=== PATIENT | female | born 1975 | race Caucasian/White ===

== ENCOUNTER 2024-05-22 18:25 | Emergency (ER) | payer MEDICAID, SELFPAY ==
[2024-05-22 19:20] VITALS: BP 135/75; PULSE 108; RESP 18; TEMP 36.4; O2SAT 100
[2024-05-22 19:23] VITALS: BP 125/94; PULSE 95; RESP 19; TEMP 36.9; O2SAT 100
--- NOTE | 2024-05-22 19:36 | XR_ITS ---
Examination: PA chest single view Technique portable AP chest single view. Examination time: May 22, 2024 2018 hours INDICATIONS: Chest pain radiating to left arm today. FINDINGS: Normal heart size. Lungs are clear. The osseous structures are intact IMPRESSION: No active disease
--- NOTE | 2024-05-22 19:37 | PD.EDRME ---
Rapid Medical Screening Exam [facility] Arrival date/time: 05/22/24 18:25 48F with history of MS (on immunosuppressant) and fibromyalgia presents to ED with 2 hours of L-sided CP, jaw pain, and L arm pain. Chief Complaint: Neuro Symptoms/Deficit Vital signs: Vital Signs Temperature 97.5 F 05/22/24 19:20 Pulse Rate 108 H 05/22/24 19:20 Respiratory Rate 18 05/22/24 19:20 Blood Pressure 135/75 H 05/22/24 19:20 Pulse Oximetry (%) 100 05/22/24 19:20 Oxygen Delivery Method Room Air 05/22/24 19:20
[2024-05-22 21:05] LABS: Basophils % (Auto) 0 % (0-2.5); Eosinophils # (Auto) 0.1 Thou/mm3 (0.0-0.5); Eosinophils % (Auto) 1 % (0-10); Hematocrit 40.5 % (36.0-46.0); Hemoglobin 13.7 g/dL (12.0-16.0); Immature Granulocytes % (Auto) 0 % (0-0); Immature Granulocytes Auto 0.02 Thou/mm3 (0.00-0.00); Lymphocytes # (Auto) 1.3 Thou/mm3 (1.0-4.8); Lymphocytes % (Auto) 14 % (10-50); Mean Corpuscular HGB Conc 33.8 g/dl (31.0-37.0); Mean Corpuscular Hemoglobin 27.7 pg (25.0-35.0); Mean Corpuscular Volume 82 fL (80-100); Monocytes # (Auto) 0.8 Thou/mm3 (0.0-0.8); Monocytes % (Auto) 9 % (0-12); Neutrophils % (Auto) 75 % (37-80); Nucleated Red Blood Cell % 0 /100 WBC (0); Platelet Count 385 Thou/mm3 (140-440); RDW Standard Deviation 37.5 fL (36.4-46.3); Red Blood Count 4.94 Miln/mm3 (4.00-5.20); White Blood Count 9.2 Thou/mm3 (3.6-11.0)
[2024-05-22 21:18] LABS: HCG Qualitative,Urine Negative
[2024-05-22 21:22] LABS: Alanine Aminotransferase 22 U/L (10-49); Albumin, Serum 4.6 gm/dL (3.5-5.0); Albumin/Globulin Ratio 1.4 (1.2-2.2); Alkaline Phosphatase 93 U/L (46-116); Anion Gap 9 (7-16); Aspartate Amino Transferase 18 U/L (0-34); BUN/Creatinine Ratio 14 Ratio (12-20); Bilirubin,Total 0.4 mg/dL (0.3-1.2); Blood Urea Nitrogen 11 mg/dL (9-23); Calcium 9.6 mg/dL (8.3-10.6); Calcium (Corrected) 9.6 mg/dL (8.5-10.1); Carbon Dioxide 24.6 mMol/L (20.0-31.0); Chloride 106 mMol/L (98-107); Creatinine (Component) 0.8 mg/dL (0.6-1.3); Globulin 3.3 gm/dL (2.3-3.5); Glucose 91 mg/dL (74-106); Osmolality,Calculated 278 (275-295); Potassium 3.7 mMol/L (3.4-5.1); Sodium 140 mMol/L (136-145); Total Protein 7.9 gm/dL (5.7-8.2); Troponin I < 0.002 ng/mL (0.0-0.045); eGFR > 60 See Note
--- NOTE | 2024-05-22 21:38 | EDNOTE_ITS ---
Neuro Symptoms Deficit-RME/HPI General Chief Complaint: Neuro Symptoms/Deficit Stated Complaint: left sided shoot jaw pain x 1day Time Seen by Provider: 05/22/24 21:37 Arrival date/time: 05/22/24 18:25 RME / HPI RME / HPI Narrative: 48F with history of MS (on immunosuppressant) and fibromyalgia presents to ED with left-sided chest pain radiating to the jaw, left arm, has been ongoing since yesterday getting worse for the last 2 hours. Patient denies any fever denies any other complaints no medications taken prior to arrival. Related Data Previous Rx's ?Medication ?Instructions ?Recorded sumatriptan succinate 25 mg tablet See Rx Instructions PO .COMPLEX 04/27/22 (Imitrex) #14 tabs acetaminophen 500 mg tablet 1,000 mg (2 x 500 mg) PO T ID #30 10/14/22 tabs ibuprofen 600 mg tablet 600 mg PO Q8H PRN pain #30 t abs 10/14/22 Allergies Allergy/AdvReac Type Severity Reaction Status Date / Time adhesive tape Allergy Severe Rash Verified 05/22/24 18:27 azithromycin Allergy Severe Hives Verified 05/22/24 18:27 Penicillins Allergy Severe RASH Verified 05/22/24 18:27 ceftriaxone (From Rocephin) Allergy Verified 05/22/24 18:27 Review of Systems Review of Systems Narrative Review of Systems: Review of system reviewed and within normal limits except mentioned in HPI ED Exam Narrative Physical exam: VITAL SIGNS: Reviewed. GENERAL APPEARANCE: Alert and interactive, follows commands, no acute distress, HEAD AND FACE: Non-traumatic. ENT: PERRL, pink conjunctivitis, eyelid no trauma, Mucous membrane moist. NECK: Supple, nontender, no nuchal rigidity. CHEST: No tenderness, no crepitus, no paradoxical movement, no retractions. LUNGS: Clear, well ventilated, symmetric, no rales, no wheezing, no ronchi, no stridor, good breath sounds bilaterally. HEART: Regular rate, regular rhythm, no murmur, no gallops. ABDOMEN: Soft, positive bowel sounds, nondistended, no guarding, nontender, no rebound, no masses, RECTAL: Deferred. GENITAL: Deferred. NEUROLOGICAL: Gross motor function intact sensory function intact, Appropriate for age. MUSCULOSKELETAL: low back nontender, full range of motion. EXTREMITIES: Nontender, full range of motion. SKIN: Color pink, dry, no rash, no lacerations, no abrasions, no contusions. LYMPHATICS: Deferred. Course Quality Measures none Orders Category Date Time Status EKG (ED ONLY) *Do not use* NOW Care 05/22/24 19:16 Completed EKG (ED Only) Stat Exams 05/22/24 19:16 Ordered XR chest 1V portable Stat Exams 05/22/24 19:36 Completed CBC Stat Lab 05/22/24 20:15 Completed Comprehensive Metabolic Panel Stat Lab 05/22/24 20:15 Completed Drug Screen,Urine Stat Lab 05/22/24 20:34 Received HCG Qualitative,Urine Stat Lab 05/22/24 20:34 Completed Troponin I Stat Lab 05/22/24 20:15 Completed Ketorolac Inj [Toradol Inj] Med 05/22/24 21:46 Discontinued 30 mg IM X1 ONE Vital Signs Vital signs: Vital Signs Temperature 97.5 F 05/22/24 19:20 Pulse Rate 108 H 05/22/24 19:20 Respiratory Rate 18 05/22/24 19:20 Blood Pressure 135/75 H 05/22/24 19:20 Pulse Oximetry (%) 100 05/22/24 19:20 Oxygen Delivery Method Room Air 05/22/24 19:20 Neuro Symptoms / Deficit MDM Narrative MDM Narrative:: 48F with history of MS (on immunosuppressant) and fibromyalgia presents to ED with left-sided chest pain radiating to the jaw, left arm, has been ongoing since yesterday getting worse for the last 2 hours. Patient denies any fever denies any other complaints no medications taken prior to arrival. Laboratory workup all came back normal troponin is normal. EKG also came back with no ST segment elevation depression noted. Results discussed with the patient. Chest x-ray also came back normal. Patient is probably having flareup of MS and fibromyalgia. Patient was advised to follow-up. Her neurologist in the morning. Was given Toradol IM Patient appears nontoxic and hemodynamically stable. Patient discharged home and instructed to follow-up with primary care provider in 24 to 48 hours. Instructed to return to the emergency department immediately if worsening of symptoms Patient data External records reviewed:: None Clinical information provided by:: patient Social determinants that could affect healthcare access:: none Patient has the following chronic illnesses:: Fibromyalgia, MS How is presenting disease/condition affected by chronic disease/condition?: exacerbated by Evaluation data The following diagnostics were reviewed and interpreted by me:: lab results, radiology exam(s) and EKG tracing(s) Lab and/or radiology exams considered but not ordered:: None Interpretation Summary: See results in [facility] Medications / Prescriptions Medications or Prescriptions considered but not ordered:: None Medication administrations:: Medication Administration History Discontinued Medications Ketorolac Tromethamine (Ketorolac Inj 60 Mg/2 Ml Vial) 30 mg IM X1 ONE Stop: 05/22/24 21:47 Toradol IM Consultations Consultation(s) initiated? (list below): No Diagnosis Neuro Differential Diagnosis: other (MS flareup, fibromyalgia, chest pain, jaw pain) Most likely diagnosis given after review of the tests above:: Jaw pain, chest pain Admission Indicated Admission indicated?: not indicated Explain why admission is indicated or not indicated:: Stable Admission Request Was there a request for admission?: No Disposition Plan Disposition Plan: Discharge Discharge Attestation Discharge Attestation: The patient was given an opportunity to ask questions and understood the discharge instructions. Discharge instructions specifically effects, indications for sooner follow up or return to the emergency department, and the expected course of current diagnosis. Patient condition: Stable Discharge Plan Plan Patient Disposition: HOME (Self Care) Disposition Comment: stable Prescriptions/Referrals Prescriptions/Med Rec: No Action sumatriptan succinate [Imitrex] 25 mg tablet See Rx Instructions .ROUTE .COMPLEX Qty: 14 0RF Rx Instructions: take 1 tab at onset of headache; if no relief may repeat 1 tab after at least 2 hrs; max = 4 tabs/24 hr acetaminophen 500 mg tablet 1,000 mg PO TID Qty: 30 0RF ibuprofen 600 mg tablet 600 mg PO Q8H PRN (Reason: pain) Qty: 30 0RF Referrals: Meek Case PA-C [Primary Care Provider] - In 1 week Problem List Clinical Impression: Jaw pain, Chest pain, Fibromyalgia, History of multiple sclerosis Patient/Caregiver Discharge Instructions Discharge Activity: activity as tolerated Education Materials: Understanding the Pain Response Additional Instructions: Thank you for the opportunity for serving you today. You are stable for discharged . You are advised to: Follow-up with your neurologist in the morning Return to ED for worsening of symptoms Increase oral fluids Take medication as prescribed Print Language: Arabic Stand Alone Forms: Janeth Award Info., Patient Portal Info Letter PA/LEATHER BELT SHAPER Supervising Physician PA/LEATHER BELT SHAPER Supervising Physician: MD Jeff
[2024-05-22 21:39] VITALS: BP 128/80; PULSE 77; RESP 18; TEMP 36.7; O2SAT 98
[2024-05-22] MEDS: KETOROLAC INJ 60 MG/2 ML VIAL 30 MG IM (22:01)
[2024-05-22 23:08] LABS: Amphetamine/Methamp Scrn,U Negative (Negative); Barbiturate Screen,Urine Negative (Negative); Benzodiazepines Screen,Urine Negative (Negative); Benzoylecgonine Screen, Ur Negative (Negative); Fentanyl Screen,Urine Negative (Negative); Opiate Screen,Urine Negative (Negative); THC Screen,Urine Positive (Negative)
== END 2024-05-22 22:01 | disposition home or self-care (01) ==
PROVIDERS: Physician Assistant; Emergency Provider Emergency Medicine; PCP Family Medicine
DX: R68.84 Jaw pain (principal)
CPT/HCPCS: 36415; 71045; 80053; 80307; 81025; 84484; 85025; 93005; 96372; 99283; J1885

== ENCOUNTER → 2024-06-13 | Outpatient (CLI) | payer MEDICAID, SELFPAY ==
[2024-06-12 16:50] LABS: HCG Qualitative,Urine Negative
--- NOTE | 2024-06-13 | XR_ITS ---
Examination: MRI cervical spine, without intravenous contrast. MRI cervical spine , with intravenous contrast. Exam date and time: June 13, 2024 0815 hours INDICATIONS: Diagnosis demyelinating disease, numbness in the extremities, altered mental status headache dizziness beginning 2021 Technique: Multiple axial, sagittal and coronal images of the cervical spine have been obtained with the Siemens high-resolution 1.5 [place] MRI scanner. Images obtained included T2 weighted fat suppressed sagittal sections, TR 3500, TE 46, T2 weighted coronal fat suppressed images, TR 3050, TE 84, T2-weighted transverse fat suppressed images, TR 30-60, TE 63, proton density transverse images, TR 4720, TE 46, and T1 weighted coronal images, TR 560, TE 13. Axial, sagittal and coronal images are obtained post intravenous injection 16 cc gadolinium. Findings: Satisfactory alignment cervical vertebral bodies No cervical fracture Multiple areas of increased signal throughout the cervical cord on the precontrast images without definite enhancement on the postcontrast images No focal soft tissue disc protrusion IMPRESSION: Multiple foci of increased signal on the precontrast images in the cervical cord, demyelinating disease pattern
--- NOTE | 2024-06-13 08:00 | XR_ITS ---
Examination: MRI of brain without intravenous contrast. MRI brain with intravenous contrast. Date and time of exam:June 13, 2024 0835 hours Comparison July 01, 2023 INDICATIONS: Headaches dizziness altered mental status numbness in the extremities left-sided neck pain several years Technique: Multiple axial and sagittal images of the brain to been obtained. Siemens high-resolution 1.52 [employer] short bore scanner utilized. Sagittal sections, T1 weighted images, TR 500, TE 14, are performed. Axial sections proton-density and T2-weighted images have been obtained. Inversion recovery axial images, TR 9260, TE 111, TR 2500. Diffusion weighted images, axial sections, TR 4800, TE 128, B value 1000. Axial sections, ADC map, TR 4800, TE 128. Axial and coronal images were also obtained post 16 cc gadolinium administered intravenously. Findings:: Enlargement of the sella turcica is not present. The optic chiasm and infundibular stalk are not remarkable. There is no localized enlargement of the medulla or peggy. Fourth ventricle and cerebellar tonsils appear normal in position. No subacute area of hemorrhage density is seen. Fourth ventricle is midline. Mass in the cerebellopontine angle region is not evident. 7th and 8th nerve complexes exhibit symmetry Globes are symmetrical Orbital musculature including medial lateral rectus muscles do not exhibit abnormality Increased white matter signal is again noted, extensive punctate foci increased signal throughout the white matter Effacement of the cortical sulcal markings is not identified. Mass effect upon the ventricular system is not identified. Diffusion-weighted images demonstrate no focus of restricted diffusion Contrast images demonstrate no abnormal enhancement Impression: No significant change in extensive punctate foci increased signal throughout the white matter, demyelinating disease
== END | disposition home or self-care (01) ==
PROVIDERS: PCP Family Medicine; Referring Provider Psychiatry & Neurology Neurology; Visit Provider Psychiatry & Neurology Neurology
DX: R90.82 White matter disease, unspecified (principal); Z32.00 Encounter for pregnancy test, result unknown
CPT/HCPCS: 70553; 72156; 81025; A9579

== ENCOUNTER 2024-09-15 22:39 | Emergency (ER) | payer MEDICAID, SELFPAY ==
[2024-09-15 22:41] VITALS: PULSE 118; RESP 18; O2SAT 98; BMI 34.0
--- NOTE | 2024-09-15 22:46 | XR_ITS ---
Examination: CT brain head without contrast. 2-D sagittal coronal reconstructions Date and time of exam:September 16, 2024 0021 hours INDICATIONS: Severe headaches with photophobia today COMPARISON: April 24, 2022 CTDI: vol (mGy):50.1 DLP: (mGycm):958 Technique: Multiple CT axial sections of the brain have been obtained, 5 mm slice thickness. Contrast has not been administered. 2-D sagittal, coronal reconstructions have been obtained Low dose protocols were performed. One or more of the following dose reduction techniques were used; automated exposure control, adjustment of the mA and/or KV according to patient size, use of iterative reconstruction technique. Findings: No significant ventricular enlargement. Intra-axial or extra-axial hemorrhage density is not seen. No mass effect or midline shift Basal cisterns are not remarkable. Fourth ventricle is midline. Cranial vault intact. Impression: Negative for acute hemorrhage, mass effect or midline shift
--- NOTE | 2024-09-15 22:46 | PD.EDHA ---
ED Headache RME/HPI General Chief Complaint: Headache Stated Complaint: HEADACHE Time Seen by Provider: 09/15/24 23:11 Arrival date/time: 09/15/24 22:39 RME / HPI RME / HPI Narrative: This section includes all my notes and documentations, including HPI, PE, and ED course. Efrain Winter MD HPI: 48yo female with a history of MS, fibromyalgia, anxiety BIBA from home presents to the ED for a headache. The headache started about 12 hours ago and has gotten progressively worse throughout the day. Patient states she has been unable to get out of bed. She reports associated nausea and photophobia. EMS administered Zofran en route. Patient denies any vomiting, fever, chills or any other associated symptoms. Denies any possibility of being . She does have an appointment with her neurologist on Monday, today after tomorrow. No other complaints reported. ROS: All negative except as documented in HPI. Physical Exam: General: Alert and oriented. Appears to be in severe pain. Eyes: Conjunctivae and lids clear. PERRL. EOMI. ENT: No nasal congestion. Neck: Supple. Heart: RRR. Lungs: No respiratory distress. Good air movement. No rhonchi, wheezing, rales. Abdomen: Soft and nontender. Back: No CVA tenderness. Skin: Warm and dry. Neuro: Alert and oriented X 3. Cranial nerves II to XII grossly normal. No peripheral motor deficits. I reviewed all diagnostic test results. My review of the CT report is unremarkable. Blood tests are unremarkable. UA normal. At this point, diagnoses include headache. Treatment here included Benadryl, NS, Toradol, Reglan, Morphine, Pepcid, and Protonix. Significant improvement noted. Based on my best medical judgment, made decision no further evaluation or treatment indicated at this time. Patient understands and agrees to the discharge instructions customized and printed, see below. Discharge Instructions from Dr. Winter: --After evaluation, you were treated for a migraine headache. Fortunately, there is no life-threatening condition. Such as stroke or brain tumor. --When you get home, try to get some rest in the dark. This can be the best treatment for migraine headache. --Try to eat regular nutritious meals, maintain good hydration, decrease stress, and get regular physical exercise. Increase oral fluid and maintain clear urine. If dark or yellow, increase oral fluid. --Take Zofran for nausea. With migraines, controlling your nausea as soon as possible can help. --Continue your migraine medications at home. --For your anxiety and panic attacks, try Xanax as needed. --See a private doctor of your choice on 09/17/2024 for recheck and further care. Ask to review all the test results from today (including official radiology reports) to make sure you receive all necessary follow-ups and monitoring. Ask to consider a referral to see a neurologist, if needed. --Read attached patient handouts and seek immediate medical care with worsening or with any concerns. Efrain Winter MD Related Data Previous Rx's ?Medication ?Instructions ?Recorded sumatriptan succinate 25 mg tablet See Rx Instructions PO .COMPLEX 04/27/22 (Imitrex) #14 tabs acetaminophen 500 mg tablet 1,000 mg (2 x 500 mg) PO TID #30 10/14/22 tabs ibuprofen 600 mg tablet 600 mg PO Q8H PRN pain #30 tabs 10/14/22 alprazolam 0.5 mg tablet (Xanax) 0.5 mg PO BID PRN anxiety #10 tabs 09/16/24 ondansetron 4 mg disintegrating 4 mg PO TID PRN nausea and 09/16/24 tablet vomiting 30 days #10 tabs Allergies Allergy/AdvReac Type Severity Reaction Status Date / Time adhesive tape Allergy Severe Rash Verified 05/22/24 18:27 azithromycin Allergy Severe Hives Verified 05/22/24 18:27 Penicillins Allergy Severe RASH Verified 05/22/24 18:27 ceftriaxone (From Rocephin) Allergy Verified 05/22/24 18:27 Review of Systems Review of Systems Systems Reviewed: All systems reviewed, normal except as documented ED Exam Narrative Physical exam: As noted in HPI. Course Quality Measures none Orders Category Date Time Status CT head/brain wo con Stat Exams 09/15/24 22:46 Taken CBC Stat Lab 09/15/24 22:59 Completed CMP [Comprehensive Metabolic Panel] Stat Lab 09/15/24 22:59 Completed Free T4 (Free Thyroxine) Stat Lab 09/15/24 22:59 Completed HCG,Qualitative Serum Stat Lab 09/15/24 22:59 Completed Magnesium Stat Lab 09/15/24 22:59 Completed TSH [Thyroid Stimulating Hormone] Stat Lab 09/15/24 22:59 Completed UA, C/S IF [Urinalysis, C/S if Indicated] Stat Lab 09/16/24 00:16 Completed DiphenhydrAMINE INJ [Benadryl Inj] Med 09/15/24 22:46 Discontinued 50 mg IVP X1 STA Famotidine Inj [Pepcid Inj] Med 09/16/24 01:04 Discontinued 20 mg IVP X1 ONE Ketorolac Inj [Toradol Inj] Med 09/15/24 22:46 Discontinued 30 mg IVP X1 ONE Metoclopramide Inj [Reglan Inj] Med 09/15/24 22:47 Discontinued 10 mg IVP X1 ONE Morphine Inj Med 09/15/24 22:46 Discontinued 6 mg IVP X1 ONE Pantoprazole Inj [Protonix Inj] Med 09/16/24 01:04 Discontinued 40 mg IVP X1 ONE Sodium Chloride 0.9% 1000 ml [Ns] 1,000 ml Med 09/15/24 22:48 Discontinued IV 999 mls/hr Vital Signs Vital signs: Vital Signs Temperature 98.0 F 09/15/24 22:54 Pulse Rate 93 09/15/24 22:54 Respiratory Rate 20 09/15/24 22:54 Blood Pressure 138/84 H 09/15/24 22:54 Pulse Oximetry (%) 100 09/15/24 22:54 Oxygen Delivery Method Room Air 09/15/24 22:54 Headache MDM Narrative MDM Narrative:: Scribe Attestation: 09/15/24 Jonna Hebert am scribing for and in the presence of Dr. Winter. 48yo female with a history of MS, fibromyalgia, anxiety BIBA from home presents to the ED for a headache. Per EMS, patient started developing a headache at 1130 that has gotten progressively worse throughout the day. Patient states she has been unable to get out of bed. She reports associated nausea and photophobia. EMS administered Zofran en route. Patient denies any vomiting, fever, chills or any other associated symptoms. Denies any possibility of being . She does have an appointment with her neurologist on Monday. No other complaints reported. Patient data External records reviewed:: [facility] previous records (Per chart review, patient was seen here on 07/14/23 for anxiety.) Clinical information provided by:: patient and EMS Social determinants that could affect healthcare access:: mental health Patient has the following chronic illnesses:: MS, fibromyalgia, anxiety How is presenting disease/condition affected by chronic disease/condition?: caused by Evaluation data The following diagnostics were reviewed and interpreted by me:: lab results and radiology exam(s) Lab and/or radiology exams considered but not ordered:: none Interpretation Summary: I reviewed all diagnostic test results. My review of the CT report is unremarkable. Blood tests are unremarkable. UA normal. Medications / Prescriptions Medications or Prescriptions considered but not ordered:: none Medication administrations:: Medication Administration History Discontinued Medications Diphenhydramine HCl (Diphenhydramine Inj 50 Mg/Ml Vial) 50 mg IVP X1 STA Stop: 09/15/24 22:47 Last Admin: 09/15/24 23:55 Dose: 50 mg Documented By: DT Famotidine (Famotidine Inj 10 Mg/Ml Vial 2 Ml) 20 mg IVP X1 ONE Stop: 09/16/24 01:05 Last Admin: 09/16/24 01:29 Dose: 20 mg Documented By: LEWIS Sodium Chloride (Ns) 1,000 mls @ 999 mls/hr IV .Q1H1M ONE Stop: 09/15/24 23:48 Last Infusion: 09/16/24 01:06 Dose: Infused Documented By: Admin: 09/15/24 23:55 Dose: 999 mls/hr Documented By: LEWIS Ketorolac Tromethamine (Ketorolac Inj 30 Mg/Ml Vial) 30 mg IVP X1 ONE Stop: 09/15/24 22:47 Last Admin: 09/15/24 23:58 Dose: 30 mg Documented By: LEWIS Metoclopramide HCl (Metoclopramide Inj 5 Mg/Ml Vial 2 Ml) 10 mg IVP X1 ONE; Protocol Stop: 09/15/24 22:48 Last Admin: 09/16/24 00:08 Dose: 10 mg Documented By: DT Morphine Sulfate (Morphine Sulf Inj 10 Mg/Ml Vial) 6 mg IVP X1 ONE Stop: 09/15/24 22:47 Last Admin: 09/16/24 00:02 Dose: 6 mg Documented By: LEWIS Pantoprazole Sodium (Pantoprazole Inj 40 Mg Vial) 40 mg IVP X1 ONE Stop: 09/16/24 01:05 Last Admin: 09/16/24 01:31 Dose: 40 mg Documented By: DT Benadryl, NS, Toradol, Reglan, Morphine, Pepcid, Protonix Consultations Consultation(s) initiated? (list below): No Diagnosis Differential diagnosis headache: migraine, tension headache, subarachnoid hemorrhage and headache Most likely diagnosis given after review of the tests above:: Migraine headache Admission Indicated Admission indicated?: not indicated Explain why admission is indicated or not indicated:: With significant improvement, there was no indication for admission. Admission Request Was there a request for admission?: No Disposition Plan Disposition Plan: Discharge Discharge Attestation Discharge Attestation: The patient and all family members were given an opportunity to ask questions and understood the discharge instructions. Discharge instructions specifically effects, indications for sooner follow up or return to the emergency department, and the expected course of current diagnosis. Patient condition: Stable Discharge Plan Plan Patient Disposition: HOME (Self Care) Prescriptions/Referrals Prescriptions/Med Rec: New alprazolam [Xanax] 0.5 mg tablet 0.5 mg PO BID PRN (Reason: anxiety) Qty: 10 0RF ondansetron 4 mg tablet,disintegrating 4 mg PO TID PRN (Reason: nausea and vomiting) 30 Days Qty: 10 0RF No Action sumatriptan succinate [Imitrex] 25 mg tablet See Rx Instructions .ROUTE .COMPLEX Qty: 14 0RF Rx Instructions: take 1 tab at onset of headache; if no relief may repeat 1 tab after at least 2 hrs; max = 4 tabs/24 hr acetaminophen 500 mg tablet 1,000 mg PO TID Qty: 30 0RF ibuprofen 600 mg tablet 600 mg PO Q8H PRN (Reason: pain) Qty: 30 0RF Referrals: Meek Case PA-C [Primary Care Provider] - In 1 week Problem List Clinical Impression: Headache Patient/Caregiver Discharge Instructions Discharge Activity: activity as tolerated Education Materials: ED Anxiety Reaction, ED Headache, Migraine, Classic, ED Panic Attack Additional Instructions: Discharge Instructions from Dr. Winter: --After evaluation, you were treated for a migraine headache.? Fortunately, there is no life-threatening condition.? Such as stroke or brain tumor. --When you get home, try to get some rest in the dark.? This can be the best treatment for migraine headache. --Try to eat regular nutritious meals, maintain good hydration, decrease stress, and get regular physical exercise.? Increase oral fluid and maintain clear urine.? If dark or yellow, increase oral fluid. --Take Zofran for nausea.? With migraines, controlling your nausea as soon as possible can help. --Continue your migraine medications at home. --For your anxiety and panic attacks, try Xanax as needed. --See a private doctor of your choice on 09/17/2024 for recheck and further care. Ask to review all the test results from today (including official radiology reports) to make sure you receive all necessary follow-ups and monitoring. Ask to consider a referral to see a neurologist, if needed. --Read attached patient handouts and seek immediate medical care with worsening or with any concerns.? Print Language: Swedish Stand Alone Forms: Janeth Award Info., Patient Portal Info Letter
[2024-09-15 22:54] VITALS: BP 138/84; PULSE 93; RESP 20; TEMP 36.7; O2SAT 100
[2024-09-15 23:07] LABS: Basophils # (Auto) 0.1 Thou/mm3 (0.0-0.2); Basophils % (Auto) 1 % (0-2.5); Eosinophils # (Auto) 0.1 Thou/mm3 (0.0-0.5); Eosinophils % (Auto) 1 % (0-10); Hematocrit 38.9 % (36.0-46.0); Hemoglobin 13.8 g/dL (12.0-16.0); Immature Granulocytes % (Auto) 0 % (0-0); Immature Granulocytes Auto 0.02 Thou/mm3 (0.00-0.00); Lymphocytes # (Auto) 2.4 Thou/mm3 (1.0-4.8); Lymphocytes % (Auto) 23 % (10-50); Mean Corpuscular HGB Conc 35.5 g/dl (31.0-37.0); Mean Corpuscular Hemoglobin 28.5 pg (25.0-35.0); Mean Corpuscular Volume 80 fL (80-100); Monocytes # (Auto) 0.8 Thou/mm3 (0.0-0.8); Monocytes % (Auto) 7 % (0-12); Neutrophils # (Auto) 7.3 Thou/mm3 (1.8-7.7); Neutrophils % (Auto) 68 % (37-80); Nucleated Red Blood Cell % 0 /100 WBC (0); Platelet Count 378 Thou/mm3 (140-440); RDW Standard Deviation 36.4 fL (36.4-46.3); Red Blood Count 4.84 Miln/mm3 (4.00-5.20); White Blood Count 10.7 Thou/mm3 (3.6-11.0)
[2024-09-15 23:34] LABS: Alanine Aminotransferase 13 U/L (10-49); Albumin, Serum 4.6 gm/dL (3.5-5.0); Albumin/Globulin Ratio 1.4 (1.2-2.2); Alkaline Phosphatase 89 U/L (46-116); Anion Gap 14 (7-16); Aspartate Amino Transferase 16 U/L (0-34); BUN/Creatinine Ratio 14 Ratio (12-20); Bilirubin,Total 0.6 mg/dL (0.3-1.2); Blood Urea Nitrogen 11 mg/dL (9-23); Calcium 10.6 mg/dL (8.3-10.6); Calcium (Corrected) 10.6 mg/dL (8.5-10.1); Carbon Dioxide 19.8 mMol/L (20.0-31.0); Chloride 102 mMol/L (98-107); Creatinine (Component) 0.8 mg/dL (0.6-1.3); Estimated Creatinine Clearance 85.1 mL/min (>60); Free T4 (Free Thyroxine) 1.41 ng/dL (0.89-1.76); Globulin 3.2 gm/dL (2.3-3.5); Glucose 115 mg/dL (74-106); HCG,Qualitative Serum Negative; Magnesium 1.8 mg/dL (1.6-2.6); Osmolality,Calculated 272 (275-295); Potassium 3.6 mMol/L (3.4-5.1); Sodium 136 mMol/L (136-145); Total Protein 7.8 gm/dL (5.7-8.2); eGFR > 60 See Note
[2024-09-15] MEDS: SODIUM CHLORIDE 0.9% 1000 ML 1,000 ML 999 ML IV (23:55)
[2024-09-15] MEDS: DiphenhydrAMINE INJ 50 MG/ML VIAL IVP (23:55)
[2024-09-15 23:58] VITALS: TEMP 37
[2024-09-15] MEDS: KETOROLAC INJ 30 MG/ML VIAL IVP (23:58)
[2024-09-16] MEDS: MORPHINE SULF INJ 10 MG/ML VIAL 6 MG IVP (00:02)
[2024-09-16] MEDS: METOCLOPRAMIDE INJ 5 MG/ML VIAL 2 ML 10 MG IVP (00:08)
--- NOTE | 2024-09-16 01:02 | PRELIM_ITS ---
CT scan of the head without intravenous contrast (axial sections with sagittal and coronal reformats). September 16, 2024 at 0021 hours Clinical History: Severe headache. Comparison: None. Findings: No evidence of intracranial hemorrhage, mass effect or midline shift. The ventricles and CSF spaces are unremarkable. The calvarium is unremarkable. The mastoid air cells and the visualized paranasal sinuses are clear. Impression: No evidence of intracranial hemorrhage, mass effect or midline shift. Report Electronically Signed By: Jakub Kern 09/16/2024 1:01:57 AM [EST]
[2024-09-16 01:06] LABS: Collection Type, Urine Clean Catch; RBC,Urine 0 /hpf (0-3)
[2024-09-16 01:21] LABS: Bilirubin,Urine Negative (Negative); Blood,Urine Negative (Negative); Clarity,Urine Clear (Clear/Hazy); Color,Urine Colorless (Lt Yel-Yel); Culture Indicated,Urine Not Indicated; Glucose, Urine Negative (Negative); Ketones,Urine Negative (Negative); Leukocyte Esterase,Urine Negative (Negative); Nitrite,Urine Negative (Negative); PH,Urine 7.5 (5.0-7.0); Protein,Urine Negative (Neg - Trace); Specific Gravity,Urine 1.011 (1.001-1.035); Squamous Epithelial Cell,Urine < 1 /hpf (0-5); Urobilinogen,Urine Negative mg/dL (0.0-1.0); WBC,Urine < 1 /hpf (0-5)
[2024-09-16] MEDS: FAMOTIDINE INJ 10 MG/ML VIAL 2 ML 20 MG IVP (01:29)
[2024-09-16] MEDS: PANTOPRAZOLE INJ 40 MG VIAL IVP (01:31)
[2024-09-16 01:38] VITALS: BP 125/85; PULSE 85; TEMP 37; O2SAT 99
== END 2024-09-16 01:39 | disposition home or self-care (01) ==
PROVIDERS: Emergency Provider Emergency Medicine; PCP Family Medicine
DX: R51.9 Headache, unspecified (principal)
CPT/HCPCS: 36415; 70450; 80053; 81001; 83735; 84439; 84443; 84703; 85025; 96361; 96374; 96375; 99284; J1200; J1885; J2270; J2470; J2765; J3490; J7030

== ENCOUNTER 2024-10-25 15:16 | Emergency (ER) | payer MEDICAID, SELFPAY ==
[2024-10-25 16:27] VITALS: BP 134/81; PULSE 95; RESP 18; TEMP 36.9; O2SAT 99; BMI 33.8
--- NOTE | 2024-10-25 16:36 | XR_ITS ---
Examination: Duplex scan of the lower extremity, unilateral left Date and time of exam: October 25, 2024 1644 hours INDICATIONS: Onset left leg swelling and pain today Technique: Duplex scan of the extremity veins using B-mode/grayscale imaging and Doppler spectral analysis and color flow Attention is directed to internal echogenicity, compression and augmentation involving these veins, color flow assessment, spectral analysis Findings: Major deep venous structures in the extremity demonstrate normal course and caliber. There is no evidence of deep vein thrombosis. Normal color flow and spectral analysis Impression: Negative for DVT..
--- NOTE | 2024-10-25 16:37 | PD.EDRME ---
Rapid Medical Screening Exam RME Arrival date/time: 10/25/24 15:16 This is a 48-year-old female with a history of MS and fibromyalgia with complaints of left leg pain patient states has been going on for the past few days. Patient was seen at the clinic this morning and was told that it can possibly be a blood clot and was sent to the emergency room for evaluation for possible blood clot to her left lower extremity. Patient denies any chest pain shortness of breath. I have greeted and performed a focused initial assessment of this patient. Initial appropriate labs ordered at this time. A comprehensive ED assessment and evaluation of the patient and analysis of all test and completion of medical decision making process will be conducted by additional ED provider. Chief Complaint: Extremity Problem,Nontraumatic Time Seen by Provider: 10/25/24 16:28 Vital signs: Vital Signs Temperature 98.5 F 10/25/24 16:27 Pulse Rate 95 10/25/24 16:27 Respiratory Rate 18 10/25/24 16:27 Blood Pressure 134/81 H 10/25/24 16:27 Pulse Oximetry (%) 99 10/25/24 16:27 Oxygen Delivery Method Room Air 10/25/24 16:27
[2024-10-25 17:32] LABS: Basophils # (Auto) 0.0 Thou/mm3 (0.0-0.2); Basophils % (Auto) 0 % (0-2.5); Eosinophils # (Auto) 0.1 Thou/mm3 (0.0-0.5); Eosinophils % (Auto) 1 % (0-10); Hematocrit 38.7 % (36.0-46.0); Hemoglobin 13.2 g/dL (12.0-16.0); Immature Granulocytes Auto 0.02 Thou/mm3 (0.00-0.00); Lymphocytes # (Auto) 1.6 Thou/mm3 (1.0-4.8); Lymphocytes % (Auto) 18 % (10-50); Mean Corpuscular HGB Conc 34.1 g/dl (31.0-37.0); Mean Corpuscular Hemoglobin 27.9 pg (25.0-35.0); Mean Corpuscular Volume 82 fL (80-100); Monocytes # (Auto) 0.7 Thou/mm3 (0.0-0.8); Monocytes % (Auto) 8 % (0-12); Neutrophils # (Auto) 6.3 Thou/mm3 (1.8-7.7); Neutrophils % (Auto) 72 % (37-80); Nucleated Red Blood Cell # 0.00 Thou/mm3 (0.00-0.00); Nucleated Red Blood Cell % 0 /100 WBC (0); Platelet Count 346 Thou/mm3 (140-440); RDW Standard Deviation 38.5 fL (36.4-46.3); Red Blood Count 4.73 Miln/mm3 (4.00-5.20); White Blood Count 8.8 Thou/mm3 (3.6-11.0)
--- NOTE | 2024-10-25 17:43 | PD.EDEXREM ---
ED Extremity Problem RME/HPI General Chief complaint: Extremity Problem,Nontraumatic Stated complaint: Left leg swelling X 24 hours, painful Time Seen by Provider: 10/25/24 16:28 Arrival date/time: 10/25/24 15:16 Limitations: no limitations RME / HPI RME / HPI Narrative: 10/25/24 15:16 This is a 48-year-old female with a history of MS and fibromyalgia with complaints of left leg pain patient states has been going on for the past few days. Patient was seen at the clinic this morning and was told that it can possibly be a blood clot and was sent to the emergency room for evaluation for possible blood clot to her left lower extremity. Patient denies any chest pain shortness of breath. I have greeted and performed a focused initial assessment of this patient. Initial appropriate labs ordered at this time. A comprehensive ED assessment and evaluation of the patient and analysis of all test and completion of medical decision making process will be conducted by additional ED provider. DR. GARZA MAIN ED EVALUATION: 48 year old female with past medical history significant for MS and fibromyalgia on gabapentin presents to the Emergency Department with complaint of left leg pain. No other symptoms or complaints reported. Related Data Previous Rx's ?Medication ?Instructions ?Recorded sumatriptan succinate 25 mg tablet See Rx Instructions PO .COMPLEX 04/27/22 (Imitrex) #14 tabs acetaminophen 500 mg tablet 1,000 mg (2 x 500 mg) PO TID #30 10/14/22 tabs ibuprofen 600 mg tablet 600 mg PO Q8H PRN pain #30 tabs 10/14/22 alprazolam 0.5 mg tablet (Xanax) 0.5 mg PO BID PRN anxiety #10 tabs 09/16/24 Allergies Allergy/AdvReac Type Severity Reaction Status Date / Time adhesive tape Allergy Severe Rash Verified 05/22/24 18:27 azithromycin Allergy Severe Hives Verified 05/22/24 18:27 Penicillins Allergy Severe RASH Verified 05/22/24 18:27 ceftriaxone (From Rocephin) Allergy Verified 05/22/24 18:27 Review of Systems Review of Systems Systems Reviewed: All systems reviewed, normal except as documented Past Medical History Past Medical History NEUROLOGIC: Positive Multiple Sclerosis CARDIAC: Positive Heart Murmur MUSCULOSKELETAL: Positive Musculoskeletal Disorders and Fibromyalgia Social History SMOKING STATUS: Never smoker SUBSTANCE USE: does not use ALCOHOL: Never ED Exam General Limitations: Present no limitations General appearance: Present alert and in no apparent distress Head Head exam: Present atraumatic, normocephalic and normal inspection Eye Eye exam: Present normal appearance, PERRL and EOMI ENT ENT exam: Present normal exam, normal oropharynx and mucous membranes moist Neck Neck exam: Present normal inspection, full ROM and trachea midline Chest Chest inspection: Present normal inspection and symmetric chest wall rise Respiratory Respiratory exam: Present normal lung sounds bilaterally Cardiovascular Cardiovascular exam: Present regular rate, normal rhythm and normal heart sounds Abdominal Exam Abdominal exam: Present soft and normal bowel sounds Extremities Exam Extremities exam: Present normal inspection and full ROM Back Exam Back exam: Present normal inspection and full ROM Neurological Exam Neurological exam: Present alert, oriented X3 and CN II-XII intact Psychiatric Psychiatric exam: Present normal affect and normal mood Skin Skin exam: Present warm, dry, intact and normal color Course Quality Measures none Orders Category Date Time Status US venous doppler LE LT Stat Exams 10/25/24 16:36 Completed CBC Stat Lab 10/25/24 17:18 Received Comprehensive Metabolic Panel Stat Lab 10/25/24 17:18 Received PT [Prothrombin Time with INR] Stat Lab 10/25/24 17:18 Received Vital Signs Vital signs: Vital Signs Temperature 98.5 F 10/25/24 16:27 Pulse Rate 95 10/25/24 16:27 Respiratory Rate 18 10/25/24 16:27 Blood Pressure 134/81 H 10/25/24 16:27 Pulse Oximetry (%) 99 10/25/24 16:27 Oxygen Delivery Method Room Air 10/25/24 16:27 Extremity Problem MDM Narrative MDM Narrative:: I, Chel Nash am scribing for and in the presence of Dr. Garza. US is negative for DVT, plan to discharge. Patient data External records reviewed:: [facility] previous records Clinical information provided by:: patient Social determinants that could affect healthcare access:: none Patient has the following chronic illnesses:: MS and fibromyalgia on gabapentin. How is presenting disease/condition affected by chronic disease/condition?: exacerbated by Evaluation data The following diagnostics were reviewed and interpreted by me:: lab results and radiology exam(s) Lab and/or radiology exams considered but not ordered:: none Interpretation Summary: Procedure(s): US venous doppler LE LT Accession Number(s): [id number] cc: Meek Case PA-C; Paul Pacheco MD; Madison Alvarez NP~ Examination: Duplex scan of the lower extremity, unilateral left Date and time of exam: October 25, 2024 1644 hours INDICATIONS: Onset left leg swelling and pain today Technique: Duplex scan of the extremity veins using B-mode/grayscale imaging and Doppler spectral analysis and color flow Attention is directed to internal echogenicity, compression and augmentation involving these veins, color flow assessment, spectral analysis Findings: Major deep venous structures in the extremity demonstrate normal course and caliber. There is no evidence of deep vein thrombosis. Normal color flow and spectral analysis Impression: Negative for DVT.. Dictated By: Paul Pacheco MD Medications / Prescriptions Medications or Prescriptions considered but not ordered:: none Medication administrations:: none Consultations Consultation(s) initiated? (list below): No Diagnosis Extremity Problem Differential Diagnosis: gout, cellulitis, lower extremity edema and deep vein thrombosis of lower extremity Most likely diagnosis given after review of the tests above:: Left leg pain Admission Indicated Admission indicated?: not indicated Admission Request Was there a request for admission?: No Disposition Plan Disposition Plan: Discharge Discharge Attestation Discharge Attestation: The patient and all family members were given an opportunity to ask questions and understood the discharge instructions. Discharge instructions specifically effects, indications for sooner follow up or return to the emergency department, and the expected course of current diagnosis. Patient condition: Stable Discharge Plan Plan Patient Disposition: HOME (Self Care) Patient condition on transfer: Stable Prescriptions/Referrals Prescriptions/Med Rec: No Action alprazolam [Xanax] 0.5 mg tablet 0.5 mg PO BID PRN (Reason: anxiety) Qty: 10 0RF sumatriptan succinate [Imitrex] 25 mg tablet See Rx Instructions .ROUTE .COMPLEX Qty: 14 0RF Rx Instructions: take 1 tab at onset of headache; if no relief may repeat 1 tab after at least 2 hrs; max = 4 tabs/24 hr acetaminophen 500 mg tablet 1,000 mg PO TID Qty: 30 0RF ibuprofen 600 mg tablet 600 mg PO Q8H PRN (Reason: pain) Qty: 30 0RF Referrals: Meek Case PA-C [Primary Care Provider] - In 1 week Problem List Clinical Impression: Left leg pain Patient/Caregiver Discharge Instructions Additional Instructions: Take Tylenol 500 mg 2 tabs every 6 hours PLUS Advil 200 mg gel 2 tablets as needed for pain. Please follow-up with your primary care physician within 2-3 days. Return to the Emergency Department as needed. Consider taking Lyrica for your fibromyalgia. Print Language: Nepali Stand Alone Forms: Janeth Award Info., Patient Portal Info Letter
[2024-10-25 18:00] LABS: Alanine Aminotransferase 21 U/L (10-49); Albumin, Serum 4.5 gm/dL (3.5-5.0); Albumin/Globulin Ratio 1.5 (1.2-2.2); Alkaline Phosphatase 92 U/L (46-116); Anion Gap 9 (7-16); Aspartate Amino Transferase 18 U/L (0-34); BUN/Creatinine Ratio 10 Ratio (12-20); Bilirubin,Total 0.6 mg/dL (0.3-1.2); Blood Urea Nitrogen 9 mg/dL (9-23); Calcium 9.0 mg/dL (8.3-10.6); Calcium (Corrected) 9.0 mg/dL (8.5-10.1); Carbon Dioxide 24.0 mMol/L (20.0-31.0); Chloride 107 mMol/L (98-107); Creatinine (Component) 0.9 mg/dL (0.6-1.3); Estimated Creatinine Clearance 78.5 mL/min (>60); Globulin 3.0 gm/dL (2.3-3.5); Glucose 105 mg/dL (74-106); Osmolality,Calculated 278 (275-295); Potassium 4.1 mMol/L (3.4-5.1); Sodium 140 mMol/L (136-145); Total Protein 7.5 gm/dL (5.7-8.2); eGFR > 60 See Note
[2024-10-25 18:07] LABS: INR 1.0 (0.9-1.3); Prothrombin Time 10.8 Seconds (9.0-12.2)
[2024-10-25 18:19] VITALS: BP 109/73; PULSE 88; RESP 16; O2SAT 99
== END 2024-10-25 18:20 | disposition home or self-care (01) ==
PROVIDERS: Nurse Practitioner Family; Emergency Provider Family Medicine; PCP Family Medicine; Referring Provider Family Medicine
DX: M79.605 Pain in left leg (principal); M79.89 Other specified soft tissue disorders
CPT/HCPCS: 36415; 80053; 85025; 85610; 93971; 99284

== ENCOUNTER 2024-12-27 17:21 | Emergency (ER) | payer MEDICAID, SELFPAY ==
--- NOTE | 2024-12-27 17:25 | EKG_ITS ---
[facility] Test Date: 2024-12-27 Pat Name: TRAVON BERGERON Department: Room: - Gender: Female Manager Of Operations: : 1975 Requested By: ED Temporary Provider Order Number: [id number] Reading MD: ED Temporary Provider Measurements Intervals [place] Rate: 109 P: [place]: QRS: 81 QRSD: 81 T: 44 QT: 334 QTc: 450 Interpretive Statements ATRIAL FIBRILLATION WITH RAPID VENTRICULAR RESPONSE LOW QRS VOLTAGE IN PRECORDIAL LEADS [QRS DEFLECTION < 1.0 mV IN CHEST LEADS] MODERATE ST DEPRESSION [0.05+ mV ST DEPRESSION] Compared to ECG 04/24/2022 23:28:01 Low QRS voltage now present ST (T wave) deviation now present Sinus tachycardia no longer present Ventricular premature complex(es) no longer present /store/S0/[id number]/ecg/[id number].pdf
[2024-12-27 17:31] VITALS: BP 127/82; PULSE 117; RESP 20; TEMP 36.9; O2SAT 95; BMI 35.6
--- NOTE | 2024-12-27 17:43 | XR_ITS ---
Examination: PA lateral chest 2 views Technique: Upright PA lateral chest 2 views Date and time: December 27, 2024, 1755 hrs. Indications: Chest pain dizziness weakness today Findings: Normal heart size. Lungs are clear. The osseous structures are intact. Impression: No active disease.
--- NOTE | 2024-12-27 17:43 | PD.EDRME ---
Rapid Medical Screening Exam RME Arrival date/time: 12/27/24 17:21 49-year-old female with no known medical history presents to the emergency room with a chief complaint of palpitations, chest pain, cough and shortness of breath x 3 days I have greeted and performed a focused initial assessment of this patient. A comprehensive ED assessment and evaluation of the patient, analysis of all test results, and completion of the medical decision making process will be conducted by additional ED providers. Chief Complaint: Arrhythmia/Palpitations Vital signs: Vital Signs Temperature 98.5 F 12/27/24 17:31 Pulse Rate 117 H 12/27/24 17:31 Respiratory Rate 20 12/27/24 17:31 Blood Pressure 127/82 12/27/24 17:31 Pulse Oximetry (%) 95 12/27/24 17:31 Oxygen Delivery Method Room Air 12/27/24 17:31 Vital signs reviewed by provider: Yes
[2024-12-27 18:35] LABS: Collection Type, Urine Clean Catch
[2024-12-27 18:36] LABS: Basophils # (Auto) 0.0 Thou/mm3 (0.0-0.2); Basophils % (Auto) 1 % (0-2.5); Eosinophils # (Auto) 0.1 Thou/mm3 (0.0-0.5); Eosinophils % (Auto) 1 % (0-10); Hematocrit 42.1 % (36.0-46.0); Hemoglobin 14.1 g/dL (12.0-16.0); Immature Granulocytes Auto 0.01 Thou/mm3 (0.00-0.00); Lymphocytes # (Auto) 2.5 Thou/mm3 (1.0-4.8); Lymphocytes % (Auto) 29 % (10-50); Mean Corpuscular HGB Conc 33.5 g/dl (31.0-37.0); Mean Corpuscular Hemoglobin 28.2 pg (25.0-35.0); Mean Corpuscular Volume 84 fL (80-100); Monocytes # (Auto) 0.7 Thou/mm3 (0.0-0.8); Monocytes % (Auto) 8 % (0-12); Neutrophils # (Auto) 5.2 Thou/mm3 (1.8-7.7); Neutrophils % (Auto) 62 % (37-80); Nucleated Red Blood Cell # 0.00 Thou/mm3 (0.00-0.00); Nucleated Red Blood Cell % 0 /100 WBC (0); Platelet Count 397 Thou/mm3 (140-440); RDW Standard Deviation 40.6 fL (36.4-46.3); Red Blood Count 5.00 Miln/mm3 (4.00-5.20); White Blood Count 8.5 Thou/mm3 (3.6-11.0)
[2024-12-27 18:48] LABS: Bacteria,Urine 1+; Bilirubin,Urine Negative (Negative); Blood,Urine Negative (Negative); Calcium Oxalate Crystals,Urine 3+; Clarity,Urine Turbid (Clear/Hazy); Color,Urine Yellow (Lt Yel-Yel); Culture Indicated,Urine Yes; Glucose, Urine Negative (Negative); Ketones,Urine Negative (Negative); Leukocyte Esterase,Urine Negative (Negative); Nitrite,Urine Negative (Negative); PH,Urine 6.0 (5.0-7.0); Protein,Urine 1+ (Neg - Trace); RBC,Urine 5 /hpf (0-3); Specific Gravity,Urine 1.030 (1.001-1.035); Squamous Epithelial Cell,Urine 4 /hpf (0-5); Urobilinogen,Urine Negative mg/dL (0.0-1.0); WBC,Urine 4 /hpf (0-5)
[2024-12-27 18:50] LABS: Amphetamine/Methamp Scrn,U Negative (Negative); Barbiturate Screen,Urine Negative (Negative); Benzodiazepines Screen,Urine Negative (Negative); Benzoylecgonine Screen, Ur Negative (Negative); Fentanyl Screen,Urine Negative (Negative); Opiate Screen,Urine Negative (Negative); THC Screen,Urine Negative (Negative)
[2024-12-27 18:53] LABS: B-Type Natriuretic Peptide 30 pg/mL (0-100)
[2024-12-27 18:55] LABS: Alanine Aminotransferase 28 U/L (10-49); Albumin, Serum 4.5 gm/dL (3.5-5.0); Albumin/Globulin Ratio 1.5 (1.2-2.2); Alkaline Phosphatase 106 U/L (46-116); Anion Gap 10 (7-16); Aspartate Amino Transferase 21 U/L (0-34); BUN/Creatinine Ratio 9 Ratio (12-20); Bilirubin,Total 0.5 mg/dL (0.3-1.2); Blood Urea Nitrogen 8 mg/dL (9-23); Calcium 10.1 mg/dL (8.3-10.6); Calcium (Corrected) 10.1 mg/dL (8.5-10.1); Carbon Dioxide 24.7 mMol/L (20.0-31.0); Chloride 105 mMol/L (98-107); Creatinine (Component) 0.9 mg/dL (0.6-1.3); Estimated Creatinine Clearance 79.8 mL/min (>60); Globulin 3.0 gm/dL (2.3-3.5); Glucose 111 mg/dL (74-106); Magnesium 1.7 mg/dL (1.6-2.6); Osmolality,Calculated 278 (275-295); Potassium 3.9 mMol/L (3.4-5.1); Sodium 140 mMol/L (136-145); Total Protein 7.5 gm/dL (5.7-8.2); Troponin I < 0.002 ng/mL (0.0-0.045); eGFR > 60 See Note
[2024-12-27 18:56] LABS: INR 1.0 (0.9-1.3); Partial Thromboplastin Time 24.1 Seconds (22.0-36.0); Prothrombin Time 10.9 Seconds (9.0-12.2)
--- NOTE | 2024-12-27 18:56 | EDNOTE_ITS ---
ED Arrhythmia Palp. RME/HPI General Chief Complaint: Arrhythmia/Palpitations Stated Complaint: CHEST HEAVINESS, DIZZINESS, SOB FOR MONTHS Time Seen by Provider: 12/27/24 17:44 Arrival date/time: 12/27/24 17:21 RME / HPI RME / HPI narrative: 12/27/24 17:21 49-year-old female with no known medical history presents to the emergency room with a chief complaint of palpitations, chest pain, cough and shortness of breath x 3 days I have greeted and performed a focused initial assessment of this patient. A comprehensive ED assessment and evaluation of the patient, analysis of all test results, and completion of the medical decision making process will be conducted by additional ED providers. -------- Dr. De La Cruz?s Main ED Evaluation: 49yo female with a history of multiple sclerosis, fibromyalgia presents to the ED for a chief complaint of palpitations, chest tightness, and shortness of breath. Patient's symptoms have been occurring for the last 2-3 months, but have worsened over the last few days. Patient reports associated dry cough, nausea, diarrhea, and lightheadedness. Patient was seen last week by her PCP and was told she had a sinus infection. Denies any tobacco use. Related Data Previous Rx's ?Medication ?Instructions ?Recorded sumatriptan succinate 25 mg tablet See Rx Instructions PO .COMPLEX 04/27/22 (Imitrex) #14 tabs acetaminophen 500 mg tablet 1,000 mg (2 x 500 mg) PO T ID #30 10/14/22 tabs ibuprofen 600 mg tablet 600 mg PO Q8H PRN pain #30 t abs 10/14/22 alprazolam 0.5 mg tablet (Xanax) 0.5 mg PO BID PRN anx iety #10 tabs 09/16/24 metoprolol tartrate 25 mg tablet 25 mg PO QDAY #30 tab s 12/27/24 Allergies Allergy/AdvReac Type Severity Reaction Status Date / Time adhesive tape Allergy Severe Rash Verified 12/27/24 17:24 azithromycin Allergy Severe Hives Verified 12/27/24 17:24 Penicillins Allergy Severe RASH Verified 12/27/24 17:24 ceftriaxone (From Rocephin) Allergy Verified 12/27/24 17:24 Review of Systems Review of Systems Systems Reviewed: All systems reviewed, normal except as documented ED Exam Narrative Physical exam: Generally the patient is alert mildly anxious and tachypneic but talking in full sentences, neck shows no goiter, heart slightly tachycardic rate at a rate of 102, lungs clear to auscultation equal bilaterally, skin is warm pale and dry, extremities show no edema, neurologic exam no focal motor deficits Hamel Coma Scale is 15 Course Course Course Narrative: CXR is ordered for determining the etiology of palpitations. Quality Measures none Orders Category Date Time Status EKG (ED ONLY) *Do not use* NOW Care 12/27/24 17:25 Completed EKG (ED Only) Stat Exams 12/27/24 17:25 Draft EKG (ED Only) Urgent Exams 12/27/24 17:25 Ordered XR chest 2V Stat Exams 12/27/24 17:43 Taken B-Type Natriuretic Peptide Stat Lab 12/27/24 18:23 Completed CBC Stat Lab 12/27/24 18:23 Completed Comprehensive Metabolic Panel Stat Lab 12/27/24 18:23 Completed Drug Screen,Urine Stat Lab 12/27/24 18:29 Completed Magnesium Stat Lab 12/27/24 18:23 Completed Partial Thromboplastin Time Stat Lab 12/27/24 18:23 Received Prothrombin Time with INR Stat Lab 12/27/24 18:23 Received Troponin I Stat Lab 12/27/24 18:23 Completed Urinalysis, C/S if Indicated Stat Lab 12/27/24 18:29 Completed Urine Culture Stat Lab 12/27/24 18:29 Received Vital Signs Vital signs: Vital Signs Temperature 98.5 F 12/27/24 17:31 Pulse Rate 117 H 12/27/24 17:31 Respiratory Rate 20 12/27/24 17:31 Blood Pressure 127/82 12/27/24 17:31 Pulse Oximetry (%) 95 12/27/24 17:31 Oxygen Delivery Method Room Air 12/27/24 17:31 Arrhythmia/Palpitations MDM Narrative MDM Narrative:: Scribe Attestation: 12/27/24 Jonna Hebert am scribing for and in the presence of Dr. De La Cruz. I interpreted all labs. EKG shows sinus tachycardia at a rate of [address] segment depression in V3 through V6 as well as in the inferior leads. 2 separate troponins each were not elevated. TSH is not abnormal. CT scan of the chest with IV contrast showed no aneurysmal dilatation of the aorta. No pulmonary emboli. No infiltrate. No enlargement of the right ventricle. Patient is dealing with palpitations with shortness of breath with clear lungs. Patient is not anemic. No evidence of pericardial tamponade. No evidence of acute coronary syndrome. I doubt pulmonary hypertension. Patient is not acidotic. There was no evidence of pulmonary embolism. Patient on the monitor had a few unifocal PVCs. I had a long discussion with the patient about the findings of her workup. I believe it would be prudent to start this patient on low-dose metoprolol being that she is having slight tachycardia with palpitations and unifocal PVCs which are rather rare. Patient was given metoprolol 25 mg p.o. here in the emergency room. Metoprolol once a day as prescribed. Follow-up with her doctor for cardiology referral. Return to ER as needed or if condition worsens. Differential diagnosis: Anemia, acute coronary syndrome, cardiac tamponade, pulmonary embolism, pulmonary hypertension, electrolyte abnormality Patient data External records reviewed:: [facility] previous records (Per chart review, patient was seen here on 10/25/24 for leg pain.) Clinical information provided by:: patient Social determinants that could affect healthcare access:: none Patient has the following chronic illnesses:: multiple sclerosis, fibromyalgia How is presenting disease/condition affected by chronic disease/condition?: uneffected by Evaluation data The following diagnostics were reviewed and interpreted by me:: lab results, radiology exam(s) and EKG tracing(s) Lab and/or radiology exams considered but not ordered:: none Interpretation Summary: [facility] Report Signed Patient: TRAVON BERGERON [facility] Record#: [id number] Birthdate: 1975 Age/Sex: 49 / F Location: [facility] Attending Dr: Ordering Physician: Ulysses Peters Date of Service: 12/27/24 Procedure(s): XR chest 2V Accession Number(s): [id number] cc: Meek Case PA-C; Ulysses Peters; Paul Pacheco MD~ Examination: PA lateral chest 2 views Technique: Upright PA lateral chest 2 views Date and time: December 27, 2024, 1755 hrs. Indications: Chest pain dizziness weakness today Findings: Normal heart size. Lungs are clear. The osseous structures are intact. Impression: No active disease. Dictated By: Paul Pacheco MD Signed By: <Electronically signed by Paul Pacheco MD in OV> 12/27/242121 [facility] Report Signed Patient: TRAVON BERGERON [facility] Record#: [id number] Birthdate: 1975 Age/Sex: 49 / F [facility] Attending Dr: Ordering Physician: Nilay De La Cruz DO Date of Service: 12/27/24 Procedure(s): CT angio chest Accession Number(s): [id number] cc: Meek Case PA-C; Paul Pacheco MD; Nilay De La Cruz DO~ Examination: CTA chest with intravenous contrast 2-D reconstructions 3-D reconstructions, vascular Date and time of exam: December 27, 2024, 193 hrs. Indications: Chest pain cardiac palpitations shortness of breath 2 months, worse today CTDI: vol (mGy) 20.04 DLP: (mGycm) 300 Technique: Multiple axial sections of the thorax have been obtained. 3 mm slice thickness, from below the hemidiaphragms to above the apices of the lungs. Mediastinal and lung density settings have been obtained. 2-D sagittal and coronal reconstructions. 3-D angiographic renderings, 3-D volume renderings, 3D post processing, vascular maximum intensity projections obtained. Contrast administered is 100 cc Isovue-370.. Low dose protocols were performed. One or more of the following dose reduction techniques were used; automated exposure control, adjustment of the mA and/or KV according to patient size, use of iterative reconstruction technique. Findings: No thoracic aortic aneurysm dilatation or dissection. Pulmonary artery segments are not enlarged. No pulmonary artery emboli No paratracheal tracheobronchial or bronchopulmonary adenopathy. No pneumonia, pulmonary edema, pulmonary nodules or pleural disease. No visualized liver or splenic lesion. Absent gallbladder Common bile duct 12 mm no common bile duct stones noted No pancreatitis Impression: Negative for pulmonary artery emboli No mediastinal lymphadenopathy. No pneumonia, pulmonary edema, pleural disease or pulmonary nodules. Recommend hepatobiliary sonography to assess the enlarged common bile duct Dictated By: Paul Pacheco MD Signed By: <Electronically signed by Paul Pacheco MD in OV> 12/27/249 Medications / Prescriptions Medications or Prescriptions considered but not ordered:: none Medication administrations:: none Consultations Consultation(s) initiated? (list below): No Diagnosis Differential diagnosis arrhythmia/palpitations: other (See MDM) Most likely diagnosis given after review of the tests above:: see clinical impression below Admission Indicated Admission indicated?: not indicated Admission Request Was there a request for admission?: No Disposition Plan Disposition Plan: Discharge Discharge Attestation Discharge Attestation: The patient and all family members were given an opportunity to ask questions a nd understood the discharge instructions. Discharge instructions specifically effects, indications for sooner follow up or return to the emergency department, and the expected course of current diagnosis. Patient condition: Stable Critical Care Time Critical Care Time Critical Care Time: Yes Total Critical Care Time (min.): 35 Attestation: Excluding other billable procedures Discharge Plan Plan Patient Disposition: HOME (Self Care) Prescriptions/Referrals Prescriptions/Med Rec: New metoprolol tartrate 25 mg tablet 25 mg PO QDAY Qty: 30 0RF No Action alprazolam [Xanax] 0.5 mg tablet 0.5 mg PO BID PRN (Reason: anxiety) Qty: 10 0RF sumatriptan succinate [Imitrex] 25 mg tablet See Rx Instructions .ROUTE .COMPLEX Qty: 14 0RF Rx Instructions: take 1 tab at onset of headache; if no relief may repeat 1 tab after at least 2 hrs; max = 4 tabs/24 hr acetaminophen 500 mg tablet 1,000 mg PO TID Qty: 30 0RF ibuprofen 600 mg tablet 600 mg PO Q8H PRN (Reason: pain) Qty: 30 0RF Referrals: Meek Case PA-C [Primary Care Provider] - In 1 week Problem List Clinical Impression: Heart palpitations, Tachycardia, Dyspnea Patient/Caregiver Discharge Instructions Education Materials: ED Palpitations Additional Instructions: Metoprolol as prescribed. Follow-up with your doctor for cardiology referral. Return to ER as needed or if condition worsens. Print Language: Sinhala Stand Alone Forms: Janeth Award Info., Patient Portal Info Letter
--- NOTE | 2024-12-27 18:56 | PC.NURSE ---
CAME IN THROUGH TRIAGE FROM HOME, STATES SHE WAS WALKING AROUND HER HOUSE AND FELT PRESSURE IN HER CHEST AND A FLUTTER FEELING. PT RECENTLY STARTED ON Z-PACK AND ANOTHER ABX. PT REPORTS SHE ALSO HAS MS AND FIBROMYALGIA. MD AT BEDSIDE CURRENTLY TO ASSESS PT. IV PLACE, PT CONNECTED TO TELE, CALL [facility] IN [place], WARM BLANKET PROVIDED. PT REPEATEDLY SAYS SHE IS VERY ANXIOUS AND SCARED
--- NOTE | 2024-12-27 19:05 | XR_ITS ---
Examination: CTA chest with intravenous contrast 2-D reconstructions 3-D reconstructions, vascular Date and time of exam: December 27, 2024, 1936 hrs. Indications: Chest pain cardiac palpitations shortness of breath 2 months, worse today CTDI: vol (mGy) 20.04 DLP: (mGycm) 300 Technique: Multiple axial sections of the thorax have been obtained. 3 mm slice thickness, from below the hemidiaphragms to above the apices of the lungs. Mediastinal and lung density settings have been obtained. 2-D sagittal and coronal reconstructions. 3-D angiographic renderings, 3-D volume renderings, 3D post processing, vascular maximum intensity projections obtained. Contrast administered is 100 cc Isovue-370.. Low dose protocols were performed. One or more of the following dose reduction techniques were used; automated exposure control, adjustment of the mA and/or KV according to patient size, use of iterative reconstruction technique. Findings: No thoracic aortic aneurysm dilatation or dissection. Pulmonary artery segments are not enlarged. No pulmonary artery emboli No paratracheal tracheobronchial or bronchopulmonary adenopathy. No pneumonia, pulmonary edema, pulmonary nodules or pleural disease. No visualized liver or splenic lesion. Absent gallbladder Common bile duct 12 mm no common bile duct stones noted No pancreatitis Impression: Negative for pulmonary artery emboli No mediastinal lymphadenopathy. No pneumonia, pulmonary edema, pleural disease or pulmonary nodules. Recommend hepatobiliary sonography to assess the enlarged common bile duct
[2024-12-27 20:02] VITALS: BP 123/83; PULSE 108; RESP 18; TEMP 37.1; O2SAT 100
[2024-12-27 21:19] LABS: Thyroid Stimulating Hormone 1.35 uIU/mL (0.55-4.78); Troponin I < 0.002 ng/mL (0.0-0.045)
[2024-12-27 21:51] VITALS: BP 113/78; PULSE 100
[2024-12-27] MEDS: METOPROLOL TARTRATE 25 MG TABLET PO (21:51)
[2024-12-27 21:55] VITALS: PULSE 100; RESP 18; O2SAT 100
== END 2024-12-27 21:57 | disposition home or self-care (01) ==
PROVIDERS: Nurse Practitioner Family; Emergency Provider Emergency Medicine; PCP Family Medicine
DX: R00.2 Palpitations (principal); R06.02 Shortness of breath; R00.0 Tachycardia, unspecified; G35 Multiple sclerosis; M79.7 Fibromyalgia; Z91.048 Other nonmedicinal substance allergy status
CPT/HCPCS: 36415; 71046; 71275; 80053; 80307; 81001; 83735; 83880; 84443; 84484; 85025; 85610; 85730; 87086; 93005; 99284; A4649; Q9967; A9270

== ENCOUNTER 2025-01-02 16:41 | Emergency (ER) | payer MEDICAID, SELFPAY ==
[2025-01-02 16:45] VITALS: BMI 35.6
--- NOTE | 2025-01-02 16:50 | EKG_ITS ---
[facility] Test Date: 2025-01-02 Pat Name: TRAVON BERGERON Department: Room: - Gender: Female Community Engagement Manager: : 1975 Requested By: ED Temporary Provider Order Number: [id number] Reading MD: ED Temporary Provider Measurements Intervals [place] Rate: 80 P: 20 ND: 131 QRS: 59 QRSD: 87 T: 49 QT: 387 QTc: 448 Interpretive Statements SINUS RHYTHM LOW QRS VOLTAGE IN PRECORDIAL LEADS [QRS DEFLECTION < 1.0 mV IN CHEST LEADS] Compared to ECG 12/27/2024 17:32:09 Atrial fibrillation no longer present ST (T wave) deviation no longer present /store/S0/[id number].pdf
[2025-01-02 17:15] VITALS: PULSE 78
[2025-01-02 17:16] VITALS: BP 136/80; PULSE 78; RESP 20; O2SAT 98
[2025-01-02] MEDS: FAMOTIDINE INJ 10 MG/ML VIAL 2 ML 20 MG IVP (17:16)
[2025-01-02] MEDS: MethylPREDNISolone SOD SUCC 62.5 MG/ML 2ML VIAL 125 MG IVP (17:18)
[2025-01-02 17:29] VITALS: TEMP 36.7
[2025-01-02 17:31] LABS: Basophils # (Auto) 0.0 Thou/mm3 (0.0-0.2); Basophils % (Auto) 1 % (0-2.5); Eosinophils # (Auto) 0.2 Thou/mm3 (0.0-0.5); Eosinophils % (Auto) 3 % (0-10); Hematocrit 39.9 % (36.0-46.0); Hemoglobin 13.3 g/dL (12.0-16.0); Immature Granulocytes Auto 0.01 Thou/mm3 (0.00-0.00); Lymphocytes # (Auto) 2.3 Thou/mm3 (1.0-4.8); Lymphocytes % (Auto) 28 % (10-50); Mean Corpuscular HGB Conc 33.3 g/dl (31.0-37.0); Mean Corpuscular Hemoglobin 28.1 pg (25.0-35.0); Mean Corpuscular Volume 84 fL (80-100); Monocytes # (Auto) 0.8 Thou/mm3 (0.0-0.8); Monocytes % (Auto) 10 % (0-12); Neutrophils # (Auto) 4.7 Thou/mm3 (1.8-7.7); Neutrophils % (Auto) 58 % (37-80); Nucleated Red Blood Cell # 0.00 Thou/mm3 (0.00-0.00); Nucleated Red Blood Cell % 0 /100 WBC (0); Platelet Count 376 Thou/mm3 (140-440); RDW Standard Deviation 40.3 fL (36.4-46.3); Red Blood Count 4.74 Miln/mm3 (4.00-5.20); White Blood Count 8.1 Thou/mm3 (3.6-11.0)
--- NOTE | 2025-01-02 17:41 | PD.EDALLER ---
ED Allergic Reaction RME/HPI General Chief complaint: Allergic Reaction Stated complaint: ALLERGY TO MEDICATION AT [facility], CHEST AND BACK PAIN Time Seen by Provider: 01/02/25 16:51 Arrival date/time: 01/02/25 16:41 Limitations: no limitations RME / HPI RME / HPI narrative: 49 year old female presents to the ED for evaluation allergic reaction today. Patient states she was evaluated here several days ago for palpitations and started on Metropolol. Reportedly followed up with marine service station attendant who started her on a longer acting Metropolol which she took for the first time last night. States she woke up this morning with hives and itching sensation to the upper skin. Accompanied by the back of her throat feeling itchy without any tongue or lip swelling. Denies any cough, difficulty breathing, chest pain, abdominal pain, n/v. Related Data Previous Rx's ?Medication ?Instructions ?Recorded sumatriptan succinate 25 mg tablet See Rx Instructions PO .COMPLEX 04/27/22 (Imitrex) #14 tabs acetaminophen 500 mg tablet 1,000 mg (2 x 500 mg) PO TID #30 10/14/22 tabs ibuprofen 600 mg tablet 600 mg PO Q8H PRN pain #30 tabs 10/14/22 alprazolam 0.5 mg tablet (Xanax) 0.5 mg PO BID PRN anxiety #10 tabs 09/16/24 metoprolol tartrate 25 mg tablet 25 mg PO QDAY #30 tabs 12/27/24 methylprednisolone 4 mg tablets in 4 mg PO QDAY ALLERGIC REACTION #21 01/02/25 a dose pack (Medrol (Pascual)) tabs Allergies Allergy/AdvReac Type Severity Reaction Status Date / Time adhesive tape Allergy Severe Rash Verified 01/02/25 16:45 azithromycin Allergy Severe Hives Verified 01/02/25 16:45 Penicillins Allergy Severe RASH Verified 01/02/25 16:45 ceftriaxone (From Rocephin) Allergy Verified 01/02/25 16:45 metoprolol Allergy Swelling Verified 01/02/25 16:45 of Lip/Tongue/Throat Review of Systems Review of Systems Systems Reviewed: All systems reviewed, normal except as documented Past Medical History Past Medical History NEUROLOGIC: Positive Multiple Sclerosis CARDIAC: Positive Cardiac Disorders, Cardiac Arrhythmia and Heart Murmur MUSCULOSKELETAL: Positive Musculoskeletal Disorders and Fibromyalgia Social History SMOKING STATUS: Never smoker SUBSTANCE USE: does not use ED Exam General Limitations: Present no limitations General appearance: Present alert and in no apparent distress Head Head exam: Present atraumatic, normocephalic and normal inspection Eye Eye exam: Present normal appearance, PERRL and EOMI ENT ENT exam: Present normal exam, normal oropharynx and mucous membranes moist Neck Neck exam: Present normal inspection, full ROM and trachea midline Chest Chest inspection: Present normal inspection and symmetric chest wall rise Respiratory Respiratory exam: Present normal lung sounds bilaterally Cardiovascular Cardiovascular exam: Present regular rate, normal rhythm and normal heart sounds Abdominal Exam Abdominal exam: Present soft and normal bowel sounds Extremities Exam Extremities exam: Present full ROM and other (mild redness to forearms ) Back Exam Back exam: Present normal inspection and full ROM Neurological Exam Neurological exam: Present alert, oriented X3 and CN II-XII intact Psychiatric Psychiatric exam: Present normal affect and normal mood Skin Skin exam: Present warm, dry, intact and other (mild redness to forearms ) Course Quality Measures none Orders Category Date Time Status Environmental Health Physician NOW Care 01/02/25 16:52 Active Continuous Pulse Oximetry NOW Care 01/02/25 16:52 Completed EKG (ED ONLY) *Do not use* NOW Care 01/02/25 16:50 Completed Insert IV NOW Care 01/02/25 16:52 Active EKG (ED Only) Stat Exams 01/02/25 16:50 Draft CBC Stat Lab 01/02/25 17:16 Completed Comprehensive Metabolic Panel Stat Lab 01/02/25 17:16 Received DiphenhydrAMINE INJ [Benadryl Inj] Med 01/02/25 16:52 Discontinued 25 mg IVP X1 ONE Famotidine Inj [Pepcid Inj] Med 01/02/25 16:52 Discontinued 20 mg IVP X1 ONE MethylPREDNISolone.* [SoluMEDROL Inj] Med 01/02/25 16:52 Discontinued 125 mg IVP X1 ONE Oxygen Delivery NOW RT 01/02/25 16:52 Active Vital Signs Vital signs: Vital Signs Pulse Rate 78 01/02/25 17:15 Allergic Reaction MDM Narrative MDM Narrative:: Mary Perla am scribing for and in the presence of Dr. Anthony. Patient data External records reviewed:: [facility] previous records (I reviewed ED visit on 12/27/2024 ) Clinical information provided by:: patient Social determinants that could affect healthcare access:: none Patient has the following chronic illnesses:: Fibromyalgia, multiple sclerosis How is presenting disease/condition affected by chronic disease/condition?: uneffected by Evaluation data The following diagnostics were reviewed and interpreted by me:: lab results and EKG tracing(s) (EKG @ 1709h NSR, rate 80, low QRS voltage in precordial leads, no acute changes ) Lab and/or radiology exams considered but not ordered:: None Interpretation Summary: CBC within normal limits CMP within normal limits Medications / Prescriptions Medications or Prescriptions considered but not ordered:: None Medication administrations:: Medication Administration History Discontinued Medications Diphenhydramine HCl (Diphenhydramine Inj 50 Mg/Ml Vial) 25 mg IVP X1 ONE Stop: 01/02/25 16:53 Last Admin: 01/02/25 17:20 Dose: 25 mg Documented By: DB Famotidine (Famotidine Inj 10 Mg/Ml Vial 2 Ml) 20 mg IVP X1 ONE Stop: 01/02/25 16:53 Last Admin: 01/02/25 17:16 Dose: 20 mg Documented By: CONG Methylprednisolone Sodium Succinate (Methylprednisolone Sod Succ 62.5 Mg/Ml 2ml Vial) 125 mg IVP X1 ONE Stop: 01/02/25 16:53 Last Admin: 01/02/25 17:18 Dose: 125 mg Documented By: CONG See above Consultations Consultation(s) initiated? (list below): No Diagnosis Most likely diagnosis given after review of the tests above:: Allergic reaction Adverse reaction to drug Admission Indicated Admission indicated?: not indicated Admission Request Was there a request for admission?: No Disposition Plan Disposition Plan: Discharge Discharge Attestation Discharge Attestation: The patient and all family members were given an opportunity to ask questions and understood the discharge instructions. Discharge instructions specifically effects, indications for sooner follow up or return to the emergency department, and the expected course of current diagnosis. Patient condition: Stable Discharge Plan Plan Patient Disposition: HOME (Self Care) Patient condition on transfer: Stable Prescriptions/Referrals Prescriptions/Med Rec: New methylprednisolone [Medrol (Pascual)] 4 mg tablets,dose pack 4 mg PO QDAY MDD 20 MG Qty: 21 0RF No Action alprazolam [Xanax] 0.5 mg tablet 0.5 mg PO BID PRN (Reason: anxiety) Qty: 10 0RF sumatriptan succinate [Imitrex] 25 mg tablet See Rx Instructions .ROUTE .COMPLEX Qty: 14 0RF Rx Instructions: take 1 tab at onset of headache; if no relief may repeat 1 tab after at least 2 hrs; max = 4 tabs/24 hr acetaminophen 500 mg tablet 1,000 mg PO TID Qty: 30 0RF ibuprofen 600 mg tablet 600 mg PO Q8H PRN (Reason: pain) Qty: 30 0RF metoprolol tartrate 25 mg tablet 25 mg PO QDAY Qty: 30 0RF Referrals: Eros Iglesias MD [Primary Care Provider, Family Practice] - In 1 week Problem List Clinical Impression: Allergic reaction, Adverse reaction to drug Patient/Caregiver Discharge Instructions Discharge Activity: activity as tolerated Education Materials: ED Medicine Reaction: Allergic Additional Instructions: Do not take the long-acting metoprolol or the other prescription for regular metoprolol for now. Follow-up with your regular doctor and your marine service station attendant next week. Print Language: Micronesian Stand Alone Forms: Janeth Award Info., Patient Portal Info Letter
[2025-01-02 17:49] LABS: Alanine Aminotransferase 20 U/L (10-49); Albumin, Serum 4.3 gm/dL (3.5-5.0); Albumin/Globulin Ratio 1.5 (1.2-2.2); Alkaline Phosphatase 98 U/L (46-116); Anion Gap 8 (7-16); Aspartate Amino Transferase 15 U/L (0-34); BUN/Creatinine Ratio 14 Ratio (12-20); Bilirubin,Total 0.4 mg/dL (0.3-1.2); Blood Urea Nitrogen 11 mg/dL (9-23); Calcium 9.1 mg/dL (8.3-10.6); Calcium (Corrected) 9.1 mg/dL (8.5-10.1); Carbon Dioxide 25.4 mMol/L (20.0-31.0); Chloride 104 mMol/L (98-107); Creatinine (Component) 0.8 mg/dL (0.6-1.3); Estimated Creatinine Clearance 89.8 mL/min (>60); Globulin 2.8 gm/dL (2.3-3.5); Glucose 93 mg/dL (74-106); Osmolality,Calculated 273 (275-295); Potassium 4.0 mMol/L (3.4-5.1); Sodium 137 mMol/L (136-145); Total Protein 7.1 gm/dL (5.7-8.2); eGFR > 60 See Note
[2025-01-02 18:14] VITALS: BP 123/72; PULSE 72; RESP 16; TEMP 36.7; O2SAT 98
== END 2025-01-02 18:15 | disposition home or self-care (01) ==
PROVIDERS: Emergency Provider Family Medicine; PCP Family Medicine
DX: L50.9 Urticaria, unspecified (principal); T50.905A Adverse effect of unspecified drugs, medicaments and biological substances, initial encounter
CPT/HCPCS: 36415; 80053; 85025; 93005; 96374; 96375; 99283; J1200; J2919; J3490

== ENCOUNTER 2025-01-03 20:49 | Emergency (ER) | payer MEDICAID, SELFPAY ==
[2025-01-03 20:53] VITALS: BP 116/66; PULSE 111; RESP 18; TEMP 36.6; O2SAT 100
[2025-01-03 20:54] VITALS: PULSE 135; RESP 15; O2SAT 98; BMI 35.6
--- NOTE | 2025-01-03 21:22 | EDNOTE_ITS ---
ED Chest Pain RME/HPI General Chief Complaint: Chest Pain Stated Complaint: CHEST PAIN Time Seen by Provider: 01/03/25 21:22 Arrival date/time: 01/03/25 20:49 RME / HPI RME / HPI narrative: DR. MONDRAGON MAIN ED EVALUATION: Patient with a Hx of symptomatic PVC's recently placed on Metoprolol developed allergic reaction to B-blockers now presenting via EMS with recurrent palpitations, chest pain, and shortness of breath. Also notes episodic lightheadedness and near-syncope. Extensive work-up performed on 12/27/2024, including CT of the chest, failed to provide evidence of PE. No evidence of fever, but does report occasional chills, and no flu-like symptoms. Denies urinary frequency, urgency, and dysuria. PMHx of Multiple Sclerosis and Fibromyalgia. SHx of Cholecystectomy and Salphingectomy. Reports allergies to penicillin and metoprolol. Related Data Previous Rx's ?Medication ?Instructions ?Recorded sumatriptan succinate 25 mg tablet See Rx Instructions PO .COMPLEX 04/27/22 (Imitrex) #14 tabs acetaminophen 500 mg tablet 1,000 mg (2 x 500 mg) PO T ID #30 10/14/22 tabs ibuprofen 600 mg tablet 600 mg PO Q8H PRN pain #30 t abs 10/14/22 alprazolam 0.5 mg tablet (Xanax) 0.5 mg PO BID PRN anx iety #10 tabs 09/16/24 metoprolol tartrate 25 mg tablet 25 mg PO QDAY #30 tab s 12/27/24 methylprednisolone 4 mg tablets in 4 mg PO QDAY ALLERG IC REACTION #21 01/02/25 a dose pack (Medrol (Pascual)) tabs clonazepam 0.5 mg tablet (Klonopin) 0.5 mg PO BID #20 tabs 01/04/25 Allergies Allergy/AdvReac Type Severity Reaction Status Date / Time adhesive tape Allergy Severe Rash Verified 01/02/25 16:45 azithromycin Allergy Severe Hives Verified 01/02/25 16:45 Penicillins Allergy Severe RASH Verified 01/02/25 16:45 ceftriaxone (From Rocephin) Allergy Verified 01/02/25 16:45 metoprolol Allergy Swelling Verified 01/02/25 16:45 of Lip/Tongue/Throat Review of Systems Review of Systems Systems Reviewed: All systems reviewed, normal except as documented Past Medical History Past Medical History NEUROLOGIC: Positive Multiple Sclerosis CARDIAC: Positive Cardiac Disorders, Cardiac Arrhythmia and Heart Murmur MUSCULOSKELETAL: Positive Musculoskeletal Disorders and Fibromyalgia ED Exam Narrative Physical exam: GEN. APPEARANCE: The patient is alert awake oriented X-3 appears quite anxious, mnotably tachycardic with rate between 110-115 bpm, does not look ill/toxic. Patient has good eye contact. Patient is cooperative. VITALS: All vitals were reviewed and the pulse ox is []% on room air which is normal according to my interpretation. HEENT: Normocephalic, atraumatic. Pupils are equal and reactive. Oral mucosa is moist. Patent Nares NECK: Supple, nontender, no thyromegaly, no meningismus, no JVD, no step offs CHEST: Symmetrical, atraumatic, and with equal expansion , Nontender on palpation no deformity and no crepitus. CARDIOVASCULAR: Tachycardic with occasional asystoles LUNGS: Clear to auscultation bilaterally with symmetrical chest rise. No laboring tachypnea or wheezing. No intercostal subcostal retraction. No rales and no rhonchi. ABDOMEN: Soft, flat, nontender to palpation, no guarding or rebound tenderness. There are no abnormal masses palpated. Active and normal bowel sounds. EXTREMITIES: Nontender. No edema. No cyanosis. Patient is able to move all 4 extremities well, with full ROM and good CSM. SKIN: Warm and dry, no jaundice or rashes noted. MUSCULOSKELETAL: No lubar or midline bony tenderness. There is no CVA tenderness. No paraspinal muscle spasm or tenderness. NEURO: Patient is PRADO x 4, Cranial nerves II through XII grossly intact. There is no focal neurologic deficits noted. GCS is 15, PNS and WAREHOUSE MATERIAL HAND[employer]ER appear grossly intact. PSYCHIATRIC: Patient is in normal mood and affect, cooperative, no SI or HI or hallucinations. Course Quality Measures none Orders Category Date Time Status Public Affairs Specialist STAT Care 01/03/25 21:28 Completed Continuous Pulse Oximetry ONCE Care 01/03/25 21:28 Completed EKG (ED ONLY) *Do not use* NOW Care 01/03/25 21:28 Completed Insert IV STAT Care 01/03/25 21:28 Completed EKG (ED Only) Stat Exams 01/03/25 21:28 Ordered XR chest 1V portable Stat Exams 01/03/25 21:28 Completed B-Type Natriuretic Peptide Stat Lab 01/03/25 21:06 Completed CBC Stat Lab 01/03/25 21:06 Completed Comprehensive Metabolic Panel Stat Lab 01/03/25 21:06 Completed Magnesium Stat Lab 01/03/25 21:06 Completed Troponin I Stat Lab 01/03/25 21:06 Completed Aspirin Chew Med 01/03/25 21:27 Discontinued 324 mg PO X1 ONE Midazolam Inj [Versed Inj] Med 01/03/25 21:27 Discontinued 2 mg IVP X1 ONE Sodium Chloride 0.9% 1000 ml [Ns] 1,000 ml Med 01/03/25 21:27 Discontinued IV 999 mls/hr Oxygen Delivery NOW RT 01/03/25 21:28 Completed Vital Signs Vital signs: Vital Signs Temperature 98 F 01/03/25 20:53 Pulse Rate 111 H 01/03/25 20:53 Respiratory Rate 18 01/03/25 20:53 Blood Pressure 116/66 01/03/25 20:53 Pulse Oximetry (%) 100 01/03/25 20:53 Oxygen Delivery Method Room Air 01/03/25 20:53 Chest Pain MDM Narrative MDM Narrative:: Scribe Attestation: Meka Perla, am scribing for and in the presence of Dr. Mondragon. Provider Notation: Although this document has been carefully reviewed, there may still be some phonetic and other typographical errors. These errors are purely grammatical due to imperfections in the software program and should not be construed in any way to compromise the substance of the patient's medical care during this visit. Patient with a Hx of symptomatic PVC's recently placed on Metoprolol developed allergic reaction to B-blockers now presenting via EMS with recurrent palpitations, chest pain, and shortness of breath. Also notes episodic lightheadedness and near-syncope. Please see PE findings. Laboratory markers including CBC, serum chemistries, demonstraes elevated WBC 14.5, normal. hemoglobin and platelet count, although nop left shift or associated bandemia. UA with evidence of calcium oxide crystals, 1+ bacteria, although negative nitrite and leukocyte esterase reactions. IV placed. Patient was aggressively hydrated and treated with low-dose benzodiazepines to control psycho-motor agitation and reduce HR. Observed for several hours, no signs of ischemia, infarction, or pericarditis. HR gradually reduced to mid-80's with resolution of PVC. Suspect psychogenic component and sensitivity to PVCs. Patient readily acknowledges high degree of anxiety, but ia somewhat resistant to sedative therapy. Encouraged to F/U with psychiatrist and placed on short course of Klonopine with intended F/U with distributor operator for outpatient echocardiograph y/telemetry monitoring. Patient data External records reviewed:: [facility] previous records (Reviewed prior ED records from 01/02/25. Patient was seen for Adverse reaction to drug.) and EMS form Clinical information provided by:: patient and EMS Social determinants that could affect healthcare access:: none Patient has the following chronic illnesses:: Multiple Sclerosis, Cardiac Arrhythmia, Heart Murmur, Fibromyalgia How is presenting disease/condition affected by chronic disease/condition?: exacerbated by Evaluation data The following diagnostics were reviewed and interpreted by me:: lab results, radiology exam(s) and EKG tracing(s) Lab and/or radiology exams considered but not ordered:: None Interpretation Summary: RADIOLOGY Chest X-Ray: Findings: Normal heart size. Lungs are clear. Osseous structures are intact. Impression: No active disease. Medications / Prescriptions Medications or Prescriptions considered but not ordered:: None Medication administrations:: Medication Administration History Discontinued Medications Aspirin (Aspirin 81 Mg Chew) 324 mg PO X1 ONE Stop: 01/03/25 21:28 Last Admin: 01/03/25 21:46 Dose: 324 mg Documented By: [email or web address] Sodium Chloride (Ns) 1,000 mls @ 999 mls/hr IV .Q1H1M ONE Stop: 01/03/25 22:27 Last Infusion: 01/03/25 22:50 Dose: Infused Documented By: [email or web address] Admin: 01/03/25 21:45 Dose: 999 mls/hr Documented By: LEI Midazolam HCl (Midazolam Inj 1 Mg/Ml Vial 2 Ml) 2 mg IVP X1 ONE Stop: 01/03/25 21:28 Last Admin: 01/03/25 21:46 Dose: 2 mg Documented By: LEI See above if any Consultations Consultation(s) initiated? (list below): No Diagnosis Chest Pain Differential Diagnosis: stable angina, unstable angina pectoris, atypical chest pain, st elevation myocardial infarction, costochondritis, chest pain and biliary colic Most likely diagnosis given after review of the tests above:: Heart palpitations, Symptomatic PVCs, Generalized anxiety disorder Admission Indicated Admission indicated?: not indicated Explain why admission is indicated or not indicated:: Patient does not meet admission criteriaa Admission Request Was there a request for admission?: No Disposition Plan Disposition Plan: Discharge Discharge Attestation Discharge Attestation: The patient and all family members were given an opportunity to ask questions and understood the discharge instructions. Discharge instructions specifically effects, indications for sooner follow up or return to the emergency department, and the expected course of current diagnosis. Patient condition: Stable Discharge Plan Plan Patient Disposition: HOME (Self Care) Discharge Disposition comment: Stable Prescriptions/Referrals Prescriptions/Med Rec: New clonazepam [Klonopin] 0.5 mg tablet 0.5 mg PO BID Qty: 20 0RF No Action alprazolam [Xanax] 0.5 mg tablet 0.5 mg PO BID PRN (Reason: anxiety) Qty: 10 0RF sumatriptan succinate [Imitrex] 25 mg tablet See Rx Instructions .ROUTE .COMPLEX Qty: 14 0RF Rx Instructions: take 1 tab at onset of headache; if no relief may repeat 1 tab after at least 2 hrs; max = 4 tabs/24 hr acetaminophen 500 mg tablet 1,000 mg PO TID Qty: 30 0RF ibuprofen 600 mg tablet 600 mg PO Q8H PRN (Reason: pain) Qty: 30 0RF metoprolol tartrate 25 mg tablet 25 mg PO QDAY Qty: 30 0RF methylprednisolone [Medrol (Pascual)] 4 mg tablets,dose pack 4 mg PO QDAY MDD 20 MG Qty: 21 0RF Referrals: Meek Case PA-C [Primary Care Provider] - In 1 week Problem List Clinical Impression: Heart palpitations, Symptomatic PVCs, Generalized anxiety disorder Patient/Caregiver Discharge Instructions Discharge Activity: activity as tolerated Other Activity Instructions:: Medication as directed. Follow-up with both psychiatrist and distributor operator within the next 1 to 2 weeks. Return if worsening Education Materials: Anxiety Disorders Tx Therapy, PVCs, ED Palpitations Additional Instructions: Reduce heart stimulants. Medications as directed. Follow-up with psychiatrist for consideration of benzodiazepine therapy and distributor operator for possible echo/Zio patch monitoring. Print Language: Khmer Stand Alone Forms: Janeth Award Info., Patient Portal Info Letter
--- NOTE | 2025-01-03 21:28 | XR_ITS ---
Examination: AP lateral 2 views Technique: AP lateral 2 views Date and time: January 03, 2025, 2133 hrs. Indications: Chest pain onset today. Findings: Normal heart size. Lungs are clear. Osseous structures are intact. Impression: No active disease.
[2025-01-03] MEDS: SODIUM CHLORIDE 0.9% 1000 ML 1,000 ML 999 ML IV (21:45)
[2025-01-03] MEDS: ASPIRIN 81 MG CHEW 324 MG PO (21:46)
[2025-01-03] MEDS: MIDAZOLAM INJ 1 MG/ML VIAL 2 ML 2 MG IVP (21:46)
[2025-01-03 21:49] LABS: Basophils # (Auto) 0.1 Thou/mm3 (0.0-0.2); Basophils % (Auto) 0 % (0-2.5); Eosinophils # (Auto) 0.0 Thou/mm3 (0.0-0.5); Eosinophils % (Auto) 0 % (0-10); Hematocrit 37.8 % (36.0-46.0); Hemoglobin 12.9 g/dL (12.0-16.0); Immature Granulocytes Auto 0.04 Thou/mm3 (0.00-0.00); Lymphocytes # (Auto) 2.7 Thou/mm3 (1.0-4.8); Lymphocytes % (Auto) 19 % (10-50); Mean Corpuscular HGB Conc 34.1 g/dl (31.0-37.0); Mean Corpuscular Hemoglobin 28.2 pg (25.0-35.0); Mean Corpuscular Volume 83 fL (80-100); Monocytes # (Auto) 1.1 Thou/mm3 (0.0-0.8); Monocytes % (Auto) 8 % (0-12); Neutrophils # (Auto) 10.6 Thou/mm3 (1.8-7.7); Neutrophils % (Auto) 73 % (37-80); Nucleated Red Blood Cell # 0.00 Thou/mm3 (0.00-0.00); Nucleated Red Blood Cell % 0 /100 WBC (0); Platelet Count 378 Thou/mm3 (140-440); RDW Standard Deviation 39.8 fL (36.4-46.3); Red Blood Count 4.57 Miln/mm3 (4.00-5.20); White Blood Count 14.5 Thou/mm3 (3.6-11.0)
[2025-01-03 22:05] LABS: Alanine Aminotransferase 22 U/L (10-49); Albumin, Serum 4.5 gm/dL (3.5-5.0); Albumin/Globulin Ratio 1.9 (1.2-2.2); Alkaline Phosphatase 99 U/L (46-116); Anion Gap 10 (7-16); Aspartate Amino Transferase 19 U/L (0-34); BUN/Creatinine Ratio 17 Ratio (12-20); Bilirubin,Total 0.3 mg/dL (0.3-1.2); Blood Urea Nitrogen 15 mg/dL (9-23); Calcium 9.4 mg/dL (8.3-10.6); Calcium (Corrected) 9.4 mg/dL (8.5-10.1); Carbon Dioxide 22.7 mMol/L (20.0-31.0); Chloride 107 mMol/L (98-107); Creatinine (Component) 0.9 mg/dL (0.6-1.3); Estimated Creatinine Clearance 79.8 mL/min (>60); Globulin 2.4 gm/dL (2.3-3.5); Glucose 110 mg/dL (74-106); Magnesium 1.8 mg/dL (1.6-2.6); Osmolality,Calculated 281 (275-295); Potassium 3.6 mMol/L (3.4-5.1); Sodium 140 mMol/L (136-145); Total Protein 6.9 gm/dL (5.7-8.2); Troponin I < 0.002 ng/mL (0.0-0.045); eGFR > 60 See Note
[2025-01-03 22:18] LABS: B-Type Natriuretic Peptide 38 pg/mL (0-100)
[2025-01-03 23:24] VITALS: BP 106/61; PULSE 93; RESP 18; TEMP 36.6; O2SAT 100
[2025-01-04 01:13] VITALS: BP 106/66; PULSE 79; RESP 15; TEMP 36.6; O2SAT 99
== END 2025-01-04 01:14 | disposition home or self-care (01) ==
PROVIDERS: Emergency Provider Emergency Medicine; PCP Family Medicine
DX: I49.3 Ventricular premature depolarization (principal); F41.1 Generalized anxiety disorder; R07.9 Chest pain, unspecified
CPT/HCPCS: 36415; 71045; 80053; 81025; 83735; 83880; 84484; 85025; 93005; 99283; J2250; J7030; A9270